=== PATIENT | female | born 1995 ===

== ENCOUNTER 2016-10-30 18:58 | Emergency (ER) | payer OTHER ==
[2016-10-30 20:16] VITALS: BP 102/63
--- NOTE | 2016-10-30 20:44 | UC ---
Respiratory Complaint HPI - History of Current Complaint Chief Complaint: UCRespiratory Stated Complaint: FEVER/COUGH Time Seen by Provider: 10/30/16 20:35 Hx Obtained From: Patient Hx Last Menstrual Period: 3 weeks ago ?: No Onset/Duration: Sudden Onset, Lasting Days - 5, Still Present Timing: Constant Severity Initially: Moderate Severity Currently: Moderate Character: Cough: Nonproductive Aggravating Factors: Recumbent Position Alleviating Factors: Nothing Associated Signs And Symptoms: Positive: Pleuritic Chest Pain, Wheezing, URI, Hoarseness Related History: Seasonal Allergies - Risk Factors Pulmonary Embolism Risk Factors: Oral Contraceptives Cardiac Risk Factors: Family History Pseudomonas Risk Factors: Negative Tuberculosis Risk Factors: Negative - Allergies/Home Medications Allergies/Adverse Reactions: Allergies Allergy/AdvReac Type Severity Reaction Status Date / Time No Known Allergies Allergy Verified 10/30/16 20:16 PMH/Surg Hx/FS Hx/Imm Hx Cardiovascular History Of: Denies: Hypertension Respiratory History Of: Denies: Asthma - Surgical History Surgical History: None Surgery Procedure, Year, and Place: none - Family History Known Family History: Positive: Cardiac Disease, Hypertension, Diabetes - Social History Occupation: Student Lives: With Family Alcohol Use: None Substance Use Type: None Smoking Status (MU): Never Smoked Tobacco Review of Systems Constitutional: Fever ENT: Ear Ache Respiratory: Shortness Of Breath, Cough Cardiovascular: Chest Pain Neurological: Headache - right parietal. All Other Systems Reviewed And Are Negative: Yes Physical Exam Triage Information Reviewed: Yes Appearance: No Pain Distress, Well-Nourished, Ill-Appearing Vital Signs: Initial Vital Signs Temp 98.7 F 10/30/16 20:12 Pulse 116 10/30/16 20:12 Resp 14 10/30/16 20:12 BP 102/63 10/30/16 20:12 Pulse Ox 98 10/30/16 20:12 Vital Signs Reviewed: Yes Eyes: Positive: Conjunctiva Clear ENT: Positive: Pharynx normal - with posterior lymphoid hyperplasia, TMs normal Neck: Positive: Supple, Enlarged Nodes @ - anterior Respiratory: Positive: Wheezing - expiratory wheeze with cough Cardiovascular Exam: Normal Musculoskeletal Exam: Normal Neurological Exam: Normal Psychological Exam: Normal Skin Exam: Normal UC Diagnostic Evaluation - Laboratory O2 Sat by Pulse Oximetry: 98 Respiratory Course/Dx - Differential Dx/Diagnosis Differential Diagnosis/HQI/PQRI: Asthma, Lower Resp Infection, Sinusitis Provider Diagnoses: Acute URI. Acute bronchospasm Discharge - Discharge Plan Condition: Stable Disposition: HOME Prescriptions: predniSONE TAB* [Deltasone TAB*] 20 mg PO DAILY #18 tab Patient Education Materials: Upper Respiratory Infection (ED), Prednisone (By mouth), How to Use a Metered-Dose Inhaler (ED)
[2016-10-30] MEDS ORDERED: predniSONE TAB* 20 MG PO ONE (20:53)
[2016-10-30] MEDS ORDERED: Albuterol HFA INHALER* 8 gm MDI INH ONE (20:53)
== END 2016-10-30 21:09 | disposition home or self-care (01) ==
LOC: UCCORT 18:58
DX: J06.9 Acute upper respiratory infection, unspecified (principal); J98.01 Acute bronchospasm
CPT/HCPCS: 99202; A9270-GY; G0463; J7512